=== PATIENT | female | born 1980 | race Caucasian/White ===

== ENCOUNTER 2018-05-10 23:35 | Emergency (ER) | payer BC, SELFPAY ==
[2018-05-10 23:40] VITALS: BP 149/104; PULSE 98; RESP 20; TEMP 36.6; O2SAT 100
[2018-05-10] MEDS: predniSONE 20 MG TAB 60 MG PO (23:50)
--- NOTE | 2018-05-10 23:52 | ED.GENADUL_ITS ---
Discharge Plan Disposition Patient Disposition: HOME Condition: Good Discharge Details Chief Complaint: RashLesion Clinical Impression: Urticaria Primary Care Provider: Cortez Cummings ED Provider: Leonard Haq Home Meds and New Rx's Prescriptions: New prednisone 20 mg tablet 60 mg PO DAILY 4 Days Qty: 12 RF: 0 Continue ibuprofen [Advil Liqui-Gel] 200 MG capsule 200 mg PO PRN PRNRF: 0 Discharge Instructions Instructions: Urticaria (ED) Additional Instructions: if rash continues next week see your primary care provider return to the emergency department for difficulty breathing, severe abdominal pain or persistent vomit Discharge Data Discharge Physician: Leonard Haq Medical Decision Making Patient comes in with itching rash to back, abdomen, and arms since 3pm. Denies any respiratory or gi symptoms, tried benadryl without relief. Has no new meds, foods or detergents. Patient's rash appears to be urticaria, unclear what caused it. No other symptoms to suggest anaphylaxis. Will start steroids and have her f/u with pcp, return precautions given Differential Diagnosis urticaria, allergic reaction HPI General Date/Time Provider Initiated Documentation: 05/10/18 23:39 . Limitations to Documentation: no limitations . Information obtained by: patient . History of Present Illness 37 year old F presents to the emergency department with the chief complaint of rash, described as moderate, Quality is described as other (itching), and is localized to the back, abdomen and upper extremity. Patient reports no radiation. No relieving factors improve symptom(s), No exacerbating factors reported . Patient notes no other symptoms.. Patient did receive the following treatments prior to arrival, none Related Data Home Medications Medication Instructions Recorded Confirmed ibuprofen [Advil Liqui-Gel] 200 mg PO PRN PRN 10/28/16 05/10/18 prednisone 60 mg PO DAILY 4 Days #12 tab 05/10/18 Previous Rx's Medication Instructions Recorded prednisone 60 mg PO DAILY 4 Days #12 tab 05/10/18 Allergies Allergy/AdvReac Type Severity Reaction Status Date / Time codeine AdvReac Unverified 05/10/18 23:42 General Stated Complaint: RashLesion CADY: 3 Review of Systems Review of Systems All systems reviewed & are unremarkable except as noted in HPI and below Constitutional Denies chills, Denies fever(s) and Denies weakness Eyes Denies loss of vision ENT Denies change in voice Cardiovascular Denies chest pain and Denies dyspnea Respiratory Denies dyspnea Gastrointestinal Denies abdominal pain, Denies nausea and Denies vomiting Genitourinary Denies dysuria Musculoskeletal Denies joint swelling Integumentary/Breasts Denies rash Neurologic Denies loss of vision and Denies weakness Psychiatric Denies depression Endocrine Denies cold intolerance and Denies heat intolerance Allergic/Immunologic Reports urticaria PFSH Social History Smoking/Tobacco Use Status: Never Exam Const General: no acute distress Orientation: alert HENMT Head: normal to inspection Ears: external ears normal General nose exam: external nose normal Mouth: moist mucous membranes Eyes General: appearance normal, both eyes and all related structures Neck Neck: normal visual inspection Resp Effort & Inspection: normal respiratory effort and able to speak in complete sentences Cardio Rate: regular rate Skin Rashes: rashes noted (mild erythematous patches on the back, abdomen and arms, they all da, not warm to touch) Neuro General: alert and oriented x3 Extrem General: normal to inspection Psych Mental Status: mental status grossly normal Course Vital Signs Temperature 36.6 C 05/10/18 23:40 Pulse 98 H 05/10/18 23:40 Respiratory Rate 20 05/10/18 23:40 Blood Pressure 149/104 H 05/10/18 23:40 Pulse Oximetry 100 05/10/18 23:40 Temperature 36.6 C 05/10/18 23:40 Temperature Source Temporal Artery Scan 05/10/18 23:40 Pulse 98 H 05/10/18 23:40 Respiratory Rate 20 05/10/18 23:40 Respiratory Effort Non-Labored 05/10/18 23:40 Blood Pressure 149/104 H 05/10/18 23:40 Blood Pressure Position Sitting 05/10/18 23:40 Pulse Oximetry 100 05/10/18 23:40 Oxygen Delivery Method Room Air 05/10/18 23:40 Oxygen Flow Rate 0 05/10/18 23:40 Pain Level 0 05/10/18 23:40
[2018-05-11 06:12] VITALS: BP 149/104; PULSE 98; RESP 20; TEMP 36.6; O2SAT 100
== END 2018-05-10 23:56 | disposition home or self-care (01) ==
PROVIDERS: Emergency Provider Emergency Medicine; PCP Family Medicine
DX: L50.9 Urticaria, unspecified (principal)
CPT/HCPCS: 99283; J7512

== ENCOUNTER 2018-05-11 19:21 | Emergency (ER) | payer BC, SELFPAY ==
[2018-05-11] VITALS (20 sets, daily range): BP systolic 94–154; BP diastolic 40–102; PULSE 90–117; RESP 12–32; TEMP 37.3; O2SAT 95–100
--- NOTE | 2018-05-11 19:48 | ED.GENADUL_ITS ---
Discharge Plan Disposition Patient Disposition: HOME Condition: Good Discharge Details Chief Complaint: Allergic Clinical Impression: Allergic reaction Primary Care Provider: Cortez Cummings ED Provider: Gema Mcneill Home Meds and New Rx's Prescriptions: Continue ibuprofen [Advil Liqui-Gel] 200 MG capsule 200 mg PO PRN PRNRF: 0 Discharge Instructions Instructions: General Allergic Reaction (ED) Additional Instructions: Take benadryl over the counter as needed and directed for itching. Take the steroids until finished. Drink plenty of fluids. Follow-up with your primary care doctor in 1 week for reevaluation. Return to the emergency department with any worsening or new concerning symptoms Discharge Data Discharge Date/Time-TO BE ENTERED AT DEPARTURE: 05/11/18 23:56 Discharge Physician: Gema Mcneill Medical Decision Making <Raji Wright MD - Last Filed: 05/19/18 21:37> 19:50 -- 37yo f here with severe hives since onset yesterday and now mild lip swelling refractory to prednisone which was started last night as well as Benadryl. Unknown allergen. Plan to give epinephrine 0.4 mg IM, benadryl 50mg, pepcid IV. Plan to reassess. Care signed out to Dr. Mcneill. <Gema Mcneill DO - Last Filed: 05/12/18 02:55> Please see Dr. Wright's note for initial presentation, exam, and plan. Pt is a 37yo F w/ no past medical history who presents for diffuse pruritic body rash since yesterday. Seen here yesterday for same and had no respiratory/ GI symptoms and was sent home with Prednisone. States this afternoon rash became a little worse with spreading to neck and face and developed lip swelling and numbness and was clearing her throat. No difficulty swallowing, difficulty breathing or vomiting. She took her prednisone dose today. No new meds, foods, lotion, detergents. Dr. Wright gave pt pepcid IV, Epi IM, and benadryl PO and bolus IVF. There is a shortage of benadryl IV. 0800 -- Upon my evaluation, pt feels much better. Rash is improving and lip swelling/tingling is resolved. Lungs cta. She was informed of plan for observation for at least 4 hours after epinephrine and she is agreeable. 1148 -- Rash near resolved. Patient is requesting to go home. She was observed for 4-1/2 hours. She appears comfortable and in no acute distress. Patient instructed to continue Benadryl and Pepcid or zantac as directed. She is instructed to finish her prednisone prescription. She is instructed to follow-up with her primary care doctor in 1 week as needed and to return here immediately if worse. She later states that she recently bought a new coat made of sweater material and wore this prior to the onset of symptoms. She was advised to not wear this coat for the next few days, and can reassess whether this is possibly the cause. HPI <Raji Wright MD - Last Filed: 05/19/18 21:37> General Date/Time Provider Initiated Documentation: 05/11/18 19:32 . Limitations to Documentation: no limitations . Information obtained by: patient . HPI Narrative: 37-year-old female presents with chief complaint of allergic reaction. Patient was seen here yesterday in the evening with chief itchy rash that had started earlier in the day. Rash was consistent with hives. She was not exhibiting any signs of anaphylaxis and was started on prednisone and Benadryl. She received a dose of prednisone last night and took another dose this afternoon. She did take a dose of Benadryl around 1 PM today. She continues to have hives that have waxed and waned. Currently hives are severe and quite itchy. She has associated tingling and swelling of her lips. She also notes that earlier today she had some frequent and noticeable odd sensation with swallowing. She has no shortness of breath or wheeze. No known exposures/allergens. No new detergents, soaps or fragrances. No new foods. Related Data Home Medications Medication Instructions Recorded Confirmed ibuprofen [Advil Liqui-Gel] 200 mg PO PRN PRN 10/28/16 05/11/18 Allergies Allergy/AdvReac Type Severity Reaction Status Date / Time codeine AdvReac Unverified 05/11/18 19:27 General Stated Complaint: Allergic CADY: 3 Review of Systems <Raji Wright MD - Last Filed: 05/19/18 21:37> Review of Systems All systems reviewed & are unremarkable except as noted in HPI and below ENT Reports as per HPI Gastrointestinal Denies nausea Exam <Raji Wright MD - Last Filed: 05/19/18 21:37> Const General: cooperative and no acute distress HENMO Head: normocephalic and atraumatic Mouth: moist mucous membranes and lip abnormal (mild swelling) Throat: posterior oropharynx normal Eyes Conjunctivae: normal conjunctivae Sclera: normal sclerae EOM: EOM intact bilaterally Neck Neck: trachea midline and supple Resp Auscultation: clear to auscultation bilaterally, no rales, no rhonchi and no wheezes Cardio Jugular venous pressure: no JVD Rate: regular rate and not tachycardic Rhythm: regular rhythm GI Palpation: soft, not firm, no guarding, no masses, not rigid and nontender Skin Rashes: rashes noted (hives neck, chest, UEs,inner thighs, back) Neuro General: alert, awake, oriented x3 and tone normal Extrem General: no edema Psych Appearance: grossly normal Mental Status: mental status grossly normal Speech and Movement: speech and movement normal Course <Raji Wright MD - Last Filed: 05/19/18 21:37> Vital Signs Temperature 37.3 C 05/11/18 19:23 Pulse 91 H 05/11/18 19:23 Respiratory Rate 20 05/11/18 19:23 Blood Pressure 154/102 H 05/11/18 19:23 Pulse Oximetry 100 05/11/18 19:23 Temperature 37.3 C 05/11/18 19:23 Temperature Source Temporal Artery Scan 05/11/18 19:23 Pulse 91 H 05/11/18 19:23 Respiratory Rate 20 05/11/18 19:23 Respiratory Effort Non-Labored 05/11/18 19:23 Blood Pressure 154/102 H 05/11/18 19:23 Pulse Oximetry 100 05/11/18 19:23 Oxygen Delivery Method Room Air 05/11/18 19:23 Oxygen Flow Rate 0 05/11/18 19:23 Pain Level 0 05/11/18 19:23 Critical Care Time <Raji Wright MD - Last Filed: 05/19/18 21:37> Critical Care Time: Yes Total Critical Care Time: 35 Attestation: I spent greater than 35 minutes addressing this patient's immediate life threats. Sign Out <Raji Wright MD - Last Filed: 05/19/18 21:37> Sign Out Data: Sign Out Comment: 37yo f with severe hives, anaphylaxis refractory to prednisone started yest. reassess post epinephrine Last updated by Raji Wright MD at 05/11/18 20:27
[2018-05-11] MEDS: diphenhydrAMINE 25 MG CAP 50 MG PO (19:53)
[2018-05-11] MEDS: FAMOTIDINE 20 MG/50 ML BAG 100 MG IVPB (19:53)
== END 2018-05-11 23:56 | disposition home or self-care (01) ==
PROVIDERS: Emergency Provider Physician Assistant; PCP Family Medicine
DX: L50.0 Allergic urticaria (principal); R22.0 Localized swelling, mass and lump, head
CPT/HCPCS: 96372; 96374; 99284; J0171

== ENCOUNTER 2020-12-04 09:56 | Emergency (ER) | payer BC, SELFPAY ==
[2020-12-04 09:59] VITALS: BP 171/96; PULSE 103; TEMP 36.4; O2SAT 98
--- NOTE | 2020-12-04 10:00 | DI.US_ITS ---
Exam(s) US LOWER EXTREMITY VENOUS RT EXAM: US LOWER EXTREMITY VENOUS RT CLINICAL HISTORY: right calf swelling TECHNIQUE: Grayscale, color, and doppler imaging of the deep venous system of the right lower extrem ity was performed. COMPARISON: No exams were available for comparison FINDINGS: There is no evidence of intraluminal thrombus and there is normal compression and augmentation demons trated within the common femoral vein, femoral vein, and popliteal vein. In the ipsilateral calf the interrogated veins also exhibit normal compression/ augmentation properti es. The ipsilateral saphenofemoral junction is patent. Incidentally noted is a 5 cm long septated Hamilton's cyst in the popliteal fossa. IMPRESSION: 1. No evidence of DVT in the right lower extremity. 2. Hamilton's cyst noted in the popliteal fossa measuring 5 cm by 2.5 cm x 1.2 cm DATA REPOSITORY:
--- NOTE | 2020-12-04 10:00 | DI.RAD_ITS ---
Exam(s) XR KNEE RT 3V AP,LAT,TOLU EXAM: XR KNEE RT 3V AP,LAT,TOLU CLINICAL HISTORY: right knee pain. TECHNIQUE: 2D digital imaging was performed. COMPARISON: No exams were available for comparison FINDINGS: There is no evidence of fracture but there is a joint effusion which may signify an internal derangem ent.. No osseous lesions. No obvious degenerative changes. IMPRESSION: No fracture but there is joint effusion which may signify an internal derangement. Appropriate follo w-up is recommended. DATA REPOSITORY: RADIATION DOSE DELIVERED:
[2020-12-04 10:18] VITALS: RESP 18
--- NOTE | 2020-12-04 11:31 | ED.GENADUL_ITS ---
Discharge Plan Disposition Patient Disposition: HOME Condition: Good Discharge Details Clinical Impression: Effusion of knee joint right, Hamilton's cyst of knee Primary Care Provider: Cortez Cummings ED Provider: Michela Drummond Home Meds and New Rx's Prescriptions: No Action ibuprofen [Advil Liqui-Gel] 200 MG capsule 200 mg PO PRN PRNRF: 0 Discharge Instructions Additional Instructions: Please follow-up with orthopedic to schedule an appointment Wear a Velcro knee brace, 1 month from support might be helpful, you can find them online or at your local pharmacy or [employer] Ibuprofen 600 mg every 8 hours with food and Tylenol 650 mg every 6 hours for breakthrough pain as needed Ice, rest Return with worsening pain, increased swelling, or with any new or worsening complaints Repeat ultrasound in 1 week with persistent or worsening symptoms Referrals: Carlos Manuel Bowman MD [ [facility] STAFF PHYSICIAN] - Medical Decision Making Afebrile nontoxic, no visible evidence of abscess or fluctuance Ultrasound shows evidence of Hamilton's cyst and knee effusion active x-ray, no evidence of septic joint, will give referral to orthopedic Neurovascularly intact Ambulatory with antalgic steady gait Ibuprofen and Tylenol for pain control Repeat ultrasound in 1 week if persistent symptoms Follow-up with primary care physician in the outpatient setting Differential Diagnosis Differential Diagnosis: Hamilton's cyst, joint effusion, DVT, abscess Medical Records Medical records reviewed: Yes I reviewed the patient's medical records. HPI General Mode of arrival: ambulatory . Date/Time Provider Initiated Documentation: 12/04/20 10:01 . Limitations to Documentation: no limitations . Information obtained by: patient . HPI Narrative: This 40-year-old female presents with right lower extremity swelling and pain for the past several months. She denies any chest pain or shortness of breath. She states that the swelling has been more persistent in the past week which is why she presents. She denies any fever or chills. She has not had any recent injuries. Denies history of coagulopathy. States she is also had problems with the affected knee in the past. Related Data Home Medications Medication Instructions Recorded Confirmed ibuprofen [Advil Liqui-Gel] 200 mg PO PRN PRN 10/28/16 12/04/20 Allergies Allergy/AdvReac Type Severity Reaction Status Date / Time codeine AdvReac Unverified 12/04/20 10:04 General Stated Complaint: Vascular CADY: 3 Review of Systems Narrative: Review of systems negative x7 aside from where indicated in HPI [facility] Social History Smoking/Tobacco Use Status: Never Smoking risk assessment performed?: Yes Drug use: Never Substance use type: does not use Do you feel safe at home: Yes Do you feel safe in your relationship?: Yes Exam Const General: cooperative Orientation: alert and oriented x3 Chest Chest: normal inspection of the chest Resp Effort & Inspection: normal respiratory effort Auscultation: clear to auscultation bilaterally Cardio Rate: regular rate Skin General skin exam: no rashes or lesions noted Neuro General: patient alert and patient oriented x3 Extrem Other: Right lower extremity with 1+ edema, tenderness to palpation over calf and popliteal region, no erythema, neurovascularly intact, DP and PT pulses intact bilaterally, sensation intact distally, no skin discoloration Course Vital Signs Vital signs: Vital Signs Temperature 36.4 C L 12/04/20 09:59 Pulse 103 H 12/04/20 09:59 Blood Pressure 171/96 H 12/04/20 09:59 Pulse Oximetry 98 12/04/20 09:59 Temperature 36.4 C L 12/04/20 09:59 Temperature Source Temporal Artery Scan 12/04/20 09:59 Pulse 103 H 12/04/20 09:59 Respiratory Rate 18 12/04/20 10:18 Respiratory Effort Non-Labored 12/04/20 10:18 Respiratory Depth Normal 12/04/20 10:18 Respiratory Pattern Normal 12/04/20 10:18 Blood Pressure 171/96 H 12/04/20 09:59 Blood Pressure Position Sitting 12/04/20 09:59 Pulse Oximetry 98 12/04/20 09:59 Oxygen Delivery Method Room Air 12/04/20 09:59 Oxygen Flow Rate 0 12/04/20 09:59 Pain Level 5 12/04/20 10:18
== END 2020-12-04 11:51 | disposition home or self-care (01) ==
LOC: RED 10:20 → ER 10:45
PROVIDERS: Emergency Provider Physician Assistant; PCP Family Medicine
DX: M25.461 Effusion, right knee (principal); M71.21 Synovial cyst of popliteal space [Baker], right knee
CPT/HCPCS: 73562; 99284; 93971; 99283

== ENCOUNTER 2024-11-26 12:23 | Outpatient (CLI) | payer OTHER, SELFPAY ==
--- NOTE | 2024-11-26 11:34 | DI.RAD_ITS ---
Exam(s) XR CHEST 2V PA LATERAL EXAM: XR CHEST 2V PA LATERAL CLINICAL HISTORY: Acute cough, R05.1, with wheezing and fever x 5 days. TECHNIQUE: 2D digital imaging was performed. COMPARISON: No exams were available for comparison FINDINGS: 2 views: Heart size is normal. The mediastinum is not widened. Lungs are clear. No infiltrates nor pleural effusions. IMPRESSION: No acute pulmonary findings. DATA REPOSITORY: RADIATION DOSE DELIVERED:
== END 2024-11-26 12:43 ==
PROVIDERS: PCP Family Medicine; Visit Provider Nurse Practitioner Family
DX: R05.1 Acute cough (principal)
CPT/HCPCS: 71046